=== PATIENT | female | born 2000 | race Two or more races ===

== ENCOUNTER 2024-07-07 06:45 | Emergency (ER) | payer MEDICAID, OTHER ==
[~2024-07-07] VITALS: Ht 160 cm; Wt 57.0 kg
[2024-07-07 07:47] VITALS: BP 126/79; PULSE 115; RESP 18; TEMP 99.4; O2SAT 97
--- NOTE | 2024-07-07 08:01 | ED.PDOC ---
Musculoskeletal HPI Comments A 23 YEAR OLD FEMALE PRESENTS TO THE ED WITH COMPLAINT OF LEFT 5TH FINGER PAIN STATUS POST FALL. PATIENT STATES SHE ACCIDENTALLY TRIPPED AND FELL AND HIT HER LEFT 5TH FINGER ON PART OF THE STAIRS EARLIER TODAY. PATIENT REPORTS HE IS NOW EXPERIENCING LEFT 5TH FINGER PAIN WITH BRUISING. PATIENT DENIES PARENTS HEAD INJURY, NECK INJURY, LOC, FEVER, CHILLS, SHORTNESS OF BREATH, CHEST PAIN, ABDOMINAL PAIN, NAUSEA, VOMITING, HEADACHE, OR OTHER COMPLAINTS. NO OTHER SYMPTOMS OR MODIFYING FACTORS AT THIS TIME. PATIENT IS ALERT, ORIENTED X 4, AND HAS STEADY GAIT. Chief Complaint: Upper Extremity Time Seen by MD: 07:23 Reviewed Notes: Nurses Notes, Medications, Allergies Allergies: Uncoded Allergies: PENICILLIN (Allergy, Unknown, 07/07/24) Home Meds Active Scripts Ibuprofen (Ibuprofen) 600 Mg Tab, 1 TAB PO TID, #30 TAB Prov:PARTHA JENSEN 07/07/24 Information Source: Patient Mode of Arrival: Ambulatory Location: Left Extremity Location: [place] Timing: Hours Prehospital treatment: None Severity: Moderate Able to Move Extremity: Yes Bear Weight: Fully Pain: Moderate Mechanism: No Trauma Circumstances: Fall Onset of Symptoms: After Trauma Symptoms: Swelling, Pain DVT Risk Factors: NONE Last Tetanus: UTD, Unknown Associated signs and symptoms: Other (LEFT FIFTH FINGER PAIN) Past Medical History PAST MEDICAL HISTORY: Denies Surgical History: Denies all surgeries PERSONNEL ANALYST History: No Pertinent PERSONNEL ANALYST History Family History Family History: Reviewed,noncontributory to illness Social History Smoker: Non-Smoker Alcohol: Denies ETOH Use Drugs: Denies Drug Use Lives In: Home Constitutional: denies: chills, diaphoresis, fatigue, fever, malaise, sweats, weakness, others EENTM: denies: blurred vision, double vision, ear bleeding, ear discharge, ear drainage, ear pain, ear ringing, eye pain, eye redness, hearing loss, mouth pain, mouth swelling, nasal discharge, nose bleeding, nose congestion, nose pain, photophobia, tearing, throat pain, throat swelling, voice changes, others Respiratory: denies: cough, hemoptysis, orthopnea, SOB at rest, shortness of breath, SOB with excertion, stridor, wheezing, others Cardiovascular: denies: chest pain, dizzy spells, diaphoresis, Dyspnea on exertion, edema, irregular heart beat, left arm pain, lightheadedness, palpitations, PND, syncope, others Gastrointestinal: denies: abdomen distended, abdominal pain, blood streaked bowels, constipated, diarrhea, dysphagia, difficulty swallowing, hematemesis, melena, nausea, poor appetite, poor fluid intake, rectal bleeding, rectal pain, vomiting, others Genitourinary: denies: abnormal vagina bleeding, burning, dyspareunia, dysuria, flank pain, frequency, hematuria, incontinence, pain, , vagina dischar ge, urgency, others Neurological: denies: dizziness, fainting, headache, left sided numbness, left sided weakness, numbness, paresthesia, pre-existing deficit, right sided numbness, right sided weakness, seizure, speech problems, tingling, tremors, weakness, others Musculoskeletal: reports: joint pain, joint swelling, others (LEFT FIFTH FINGER PAIN); denies: back pain, gout, muscle pain, muscle stiffness, neck pain Integumetry: denies: bruises, change in color, change in hair/nails, dryness, laceration, lesions, lumps, rash, wounds, others Allergic/Immunocompromised: denies: Difficulty Healing, Frequent Infections, Hives, Itching, others Hematologic/Lymphatic: denies: anemia, blood clots, easy bleeding, easy bruis ing, swollen glands, others Endocrine: denies: excessive hunger, excessive sweating, excessive thirst, exc essive urination, flushing, intolerance to cold, intolerance to heat, unexplained weight gain, unexplained weight loss, others Psychiatric: denies: anxiety, bipolar disorder, depression, hopeless, panic disorder, schizophrenia, sleepless, suicidal, others All Other Systems: Reviewed and Negative Physical Exam General Appearance: No Apparent Distress, Normal HEENT: Normal ENT Inspection, PERRL/EOMI, Pharynx Normal, TMs Normal Neck: Full Range of Motion, Non-Tender, Normal, Normal Inspection Respiratory: Chest Non-Tender, Lungs Clear, No Accessory Muscle Use, No Respiratory Distress, Normal Breath Sounds Cardiovascular: No Edema, No JVD, No Murmur, No Gallop, Normal Peripheral Pulses, Regular Rate/Rhythm Breast Exam: Deferred Gastrointestinal: No Organomegaly, Non Tender, No Pulsatile Mass, Normal Bowel Sounds, Soft Genitalia: Deferred Pelvic: Deferred Rectal: Deferred Extremities: Decreased range of motion (SLIGHTLY ), No calf tenderness, Normal capillary refill, No pedal edema, Swelling (BONY TENDERNESS AND MILD SWELLING ON LEFT 5TH FINGER, NO DEFORMITY. ), Tender (AND SWELLING ON LEFT 5TH FINGER. ) Musculoskeletal : Apperance: Normal Neurologic: Alert, applications programmer analyst II-XII nml as Tested, No Motor Deficits, Normal Affect, Normal Mood, No Sensory Deficits Cerebellar Function: Normal Reflexes: Normal Skin: Dry, Normal Color, Warm Peripheral Pulses: 2+ carotid (R), 2+ carotid (L) Lymphatic: No Adenopathy Was a procedure done? Was a procedure done?: No Differential Diagnosis EXT Differential Diagnosis: Fracture, Sprain, Dislocation, Contusion, Strain, Bursitis X-Ray, Labs, Meds, VS Vital Signs Date Time Temp Pulse Resp B/P (MAP) Pulse Ox O2 Delivery O2 Flow Rate FiO2 07/07/24 07:47 115 18 97 Room Air 07/07/24 07:47 99.4 115 18 126/79 (95) 97 99.4 07/07/24 07:26 99.4 115 18 126/79 (95) 97 CLINICAL INDICATION: Trauma TECHNIQUE: 3 radiographic views of the left hand were obtained. Comparison: None FINDINGS/IMPRESSION: There is a displaced and comminuted intra-articular fracture at the 5th distal phalanx. ATED BY: FARZAD FRAGOSO MD DICTATED DATE/TIME: 07/07/24821 SIGNED BY: FARZAD FRAGOSO MD SIGNED DATE/TIME: 07/07/24821 CC: X-Ray, Labs, Meds, VS Comment EXTERNAL MEDICAL RECORDS REVIEWED: [NONE] INDEPENDENT HISTORIANS: [NONE] SOCIAL DETERMINANTS OF HEALTH: [NONE] LABS ORDERED: NONE REVIEWED AND INTERPRETED RESULTS: NONE IMAGING ORDERED: XR HAND LT TREATMENTS ORDERED: FROG SPLINT APPLIED TO PATIENT'S LEFT 5TH FINGER. PROCEDURES PERFORMED: NONE CRITICAL CARE TIME: NONE I HAVE DISCUSSED THE PATIENT WITH THE ATTENDING PHYSICIAN DR. IYER AND HE AGREES WITH THE PATIENT'S PLAN OF CARE AND DISPOSITION. BASED ON HISTORY OF PRESENT ILLNESS, AND PHYSICAL EXAM, PATIENT WILL BE DISCHARGED HOME. DISCUSSED PLAN FOR DISCHARGE HOME WITH RX [IBUPROFEN 600 MG]. MEDICATION WARNINGS GIVEN. SHARED DECISION MAKING: PATIENT INSTRUCTED TO FOLLOW UP WITH PRIMARY CARE PROVIDER IN 1-2 DAYS FOR RE-EVALUATION OF SYMPTOMS. PATIENT VERBALIZES UNDERSTANDING TO RETURN TO ED FOR NEW OR WORSENING SYMPTOMS OR IF FOLLOW UP WITH PCP CANNOT BE OBTAINED. PATIENT FEELS COMFORTABLE GOING HOME AT THIS TIME. ALL QUESTIONS ADDRESSED AT TIME OF DISCHARGE. Images Reviewed?: Images reviewed and evaluated by me Time of 1ST Reevaluation: 08:30 Reevaluation 1ST: Improved Patient Education/Counseling: Diagnosis, Treatment, Need For Follow Up Family Education/Counseling: Diagnosis, Treatment, Need For Follow Up Medical Screening: No EMC Exist At This Time Departure 1 Departure Time of Disposition: 08:40 Impression: Primary Impression: Avulsion fracture of distal phalanx of finger Qualified Codes: S62.639A - Displaced fracture of distal phalanx of unspecified finger, initial encounter for closed fracture Additional Impression: Status post fall Disposition: 01 HOME / SELF CARE / HOMELESS Condition: Stable Additional Instructions: FOLLOW-UP WITH PCP IN 1 TO 2 DAYS. TAKE MEDICATIONS PRESCRIBED. RETURN TO ED FOR ANY NEW OR WORSENING SYMPTOMS. e-Prescriptions Ibuprofen (Ibuprofen) 600 Mg Tab 1 TAB PO TID, #30 TAB Prov: PARTHA JENSEN 07/07/24 Discharged With: Self Critical Care Note Critical Care Time?: No Stability Stability form required: No I personally scribed for PARTHA JENSEN ([email or web address]) on 07/07/24 at 08:01. Electronically submitted by Kj Smith ([email or web address]). I personally scribed for PARTHA JENSEN ([email or web address]) on 07/07/24 at 08:27. Electronically submitted by Kj Smith ([email or web address]). PARTHA JENSEN Jul 07, 2024 08:01
--- NOTE | 2024-07-07 08:23 | DVH ---
CLINICAL INDICATION: Trauma TECHNIQUE: 3 radiographic views of the left hand were obtained. Comparison: None FINDINGS/IMPRESSION: There is a displaced and comminuted intra-articular fracture at the 5th distal phalanx.
[2024-07-07] MEDS ORDERED: IBUP-1454 PO (08:27)
[2024-07-07] MEDS: ACETAMINOPHEN 325 MG TAB PO ONE (08:28)
== END 2024-07-07 08:36 | disposition home or self-care (01) ==
LOC: ER 06:45
DX: S62.637A Displaced fracture of distal phalanx of left little finger, initial encounter for closed fracture (principal); Z79.1 Long term (current) use of non-steroidal anti-inflammatories (NSAID); Z88.0 Allergy status to penicillin; W01.198A Fall on same level from slipping, tripping and stumbling with subsequent striking against other object, initial encounter; Y93.89 Activity, other specified; Y92.89 Other specified places as the place of occurrence of the external cause; Y99.8 Other external cause status
CPT/HCPCS: 29130; 73130